=== PATIENT | female | born 1995 | race Caucasian/White ===

== ENCOUNTER 2020-07-07 08:05 | Outpatient (RCR) | payer OTHER, SELFPAY ==
[2020-07-07 08:16] VITALS: BP 123/81; PULSE 92; TEMP 36.2
--- NOTE | 2020-07-07 10:41 | PCM.WC.HP ---
(1) Laceration without foreign body of left ring finger without damage to nail, initial encounter Status: Chronic Code(s): S61.215A - Laceration without foreign body of left ring finger without damage to nail, initial encounter History of Present Illness Date of Service: 07/07/20 Chief Complaint: left 4th digit laceration History of Wound: The patient presents to the wound healing center today (07/07/2020) for an initial evaluation of a left fourth digit laceration. She was referred to the [facility] wound healing center by her occupational med provider, Stefania Potter NP. 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 She did not seek immediate medical evaluation. Per her records, the patient initially had cellulitis of the left ring finger and was treated with Augmentin, which resulted in resolution of the cellulitis. Her wound care has consisted of Epsom salt soaks and triple antibiotic ointment. She has been splinting her left ring finger while at work. She has been working light duty with restrictions that prohibit the use of her left hand. The patient is right-handed. She notes a small improvement in the size of her laceration. The laceration lies over the left fourth digit PIP joint. There is a nodule beneath the laceration, which I suspect may be keloid scarring. She denies any history of keloid formation or delayed wound healing. The left fourth digit at times becomes swollen and erythematous, typically after performing range of motion. She denies any purulent/malodorous drainage. She denies any fever or chills. She is a non-smoker. He had an x-ray of her left fourth digit on 06/22/2020 which revealed no osseous, articular, or soft tissue abnormality. Past Medical History Past Medical History: Chronic Problems Laceration without foreign body of left ring finger without damage to nail, initial encounter (Chronic) Allergies/Adverse Reactions: Allergies Sulfa (Sulfonamide Antibiotics) Allergy (Verified 08/14/15 21:45) Hives Home Medications: Ambulatory Orders Medication Instructions Recorded Naproxen [Naprosyn] 500 mg PO BID #10 tablet 08/14/15 Smoking Status: Never smoker Review of Systems Constitutional: Denies: Chills, Fever, Weight Change Eyes: Denies: Pain, Vision Change HEENT: Denies: Difficulty Hearing, Difficulty Swallowing, Sinus Congestion Cardiovascular: Denies: Chest Pain, Palpitations Respiratory: Denies: Cough, Shortness of Breath Gastrointestinal: Denies: Diarrhea, Nausea, Vomiting Genitourinary: Denies: Dysuria, Hematuria Musculoskeletal: Reports: Hand Pain, Joint Pain - Left 4th digit PIP joint Skin: Reports: Wounds - left 4th digit laceration Neurological: Denies: Numbness, Tingling Endocrine: Denies: Heat/ Cold Intolerance, Polydipsia, Polyuria Hematologic/ Lymphatic: Denies: Easy Bruising, Easy Bleeding - Physical Exam Vital Signs Temp Pulse BP 97.1 F L 92 123/81 H 07/07/20 08:16 07/07/20 08:16 07/07/20 08:16 General: Alert, Cooperative, No apparent distress HEENT: Atraumatic, Normocephalic Oral: Moist Mucosa Neck: Supple, Trachea Midline Lungs: Clear to auscultation, Normal air movement, No rhonchi, No wheeze, No rales Cardiovascular: Regular rate, Regular Rhythm Abdomen: Bowel Sounds Present, Soft, Non-Distended Extremities: No clubbing, No cyanosis, No edema, Capillary Refill Less than 3 Seconds, Peripheral Pulses Normal Skin: Ulcer/ Wound - Left fourth digit laceration over PIP joint. Wound bed is healthy with good granulation tissue. The wound does not tunnel, undermining, or probe to bone. There is no purulent/malodorous drainage. There is a nodule underlying the laceration, which is nonfluctuant. Mildly tender to palpation. Wound Measurements and Assessment WC - Nurse 1 - General Ulcer Measurement Start: 07/07/20 08:14 Freq: Status: Active Protocol: Activity Type Activity Date Activity User E-Sign Co-Sign Detail Recorded Client Recorded Date Recorded By Document 07/07/20 08:16 KR [id number] 07/07/20 08:29 KR 07/07/20 08:16 Wound Center Nurse 1 [Ulcer Assessment] #1 Left 4th finger -Current Size (cm) - Length 0.1 -Current Size (cm) - Width 0.1 -Current Size (cm) - Depth 1 -Total Square Cm 0.01 -Exudate Amt None Present -Wound Margin Distinct, Outline Attached -Granulation Amt Small (1-33%) -Granulation Quality Red -Slough/Fibrin No -Necrosis Amt None Present (0 %) -Texture (Carol[place]-wound Skin Appearance) Assessed, Scarring -Moisture ([place]-wound Skin Appearance No Abnormality, ) Assessed -Color ([place]-wound Skin Appearance) No Abnormality, Assessed -Temperature ([place]-wound Skin No Abnormality Appearance) (Pt Warm) -Tenderness on Palpation ([place]-wound No Skin Appearance) -Ulcer Cleansing Rinsed/ Irrigated with Saline -Foul Odor after Cleansing No -Anesthetic Used 5% Lidocaine Gel WC - Nurse 3 - General Ulcer D/C NN Start: 07/07/20 08:14 Freq: Status: Active Protocol: Activity Type Activity Date Activity User E-Sign Co-Sign Detail Recorded Client Recorded Date Recorded By Document 07/07/20 09:21 KR [id number] 07/07/20 09:21 KR 07/07/20 09:21 Wound Care Nurse 3 [Wound Dressing] -Ulcer Cleansing Rinsed/ Irrigated with Saline -Foul Odor after Cleansing No -Primary Dressing Applied Promogran -Primary Dressing Covered/Secured Dry Gauze, with Secured with Tape -Promogran 1 Pain Scale: 0-10 Numeric [Pain] -Is Patient Pain Free? Yes WC - Visit Discharge [Visit Discharge Information] -Discharge Condition Stable -Ambulatory Status Ambulatory -Transportation Private Auto Neurological: Neuro grossly intact Psych/Mental Status: Normal Affect, Appropriate Debridement Note Post-Debridement Measurements/Treatment WC - Nurse 3 - General Ulcer D/C NN Start: 07/07/20 08:14 Freq: Status: Active Protocol: Activity Type Activity Date Activity User E-Sign Co-Sign Detail Recorded Client Recorded Date Recorded By Document 07/07/20 09:21 KR [id number] 07/07/20 09:21 KR 07/07/20 09:21 Wound Care Nurse 3 #1 Left 4th finger -Ulcer Cleansing Rinsed/ Irrigated with Saline -Foul Odor after Cleansing No -Primary Dressing Applied Promogran -Primary Dressing Covered/Secured with Dry Gauze, Secured with Tape -Promogran 1 Pain Scale: 0-10 Numeric Is Patient Pain Free? Yes - Visit Discharge Discharge Condition Stable Ambulatory Status Ambulatory Transportation Private Auto Wound debrided: Left fourth digit laceration Laterality: Left Type of Debridement: Excisional debridement Anesthesia Used: 4% Lidocaine Solution Depth: in the subcutaneous layer Percentage of wound debrided: 100 Instrument Used: - - 1 mm curette Tissue Removed: Slough and devitalized tissue Severity: Fat Layer Exposed Amount of bleeding with debridement: Mild Bleeding Controlled with: Compression and gauze Patient tolerated procedure well Assessment/Plan Active Problems Laceration without foreign body of left ring finger without damage to nail, initial encounter (Chronic) Assessment: See above Plan: Debridement performed today in clinic. Melanie applied. At home wound-care instructions: Change Melanie dressing every other day, or more frequently as needed due to contamination. When changing dressing, wash wound thoroughly with antibacterial soap and water. Moisten Melanie with saline and apply to wound bed. Cover with gauze. Wear splint to left fourth digit when working. Avoid repetitive movement of the left fourth digit. May remove splint when showering and sleeping. When showering, massage area of laceration with warm water. Diet: Patient encouraged to increase protein intake. Labs/cultures/imaging: Cultures deferred today. No additional labs or imaging ordered at this time. Follow-up: Return to clinic in 1 week for re-evaluation. Return sooner or report to the emergency room should symptoms worsen, or new symptoms arise. [employer] updated with work restrictions. Note: [employer] speech recognition child development instructor software was used to create portions of this document. Sound-alike and misspelled words, as well as other child development instructor errors may be contained in the documentation. Office Visits / Consults: [id number] OV L4 New [id number]: [id number] Dee subq tissue 20 sq cm/<
== END 2020-07-12 23:59 ==
LOC: WC 08:05
PROVIDERS: Visit Provider Nurse Practitioner Family
DX: S61.214A Laceration without foreign body of right ring finger without damage to nail, initial encounter (principal); W26.8XXA Contact with other sharp object(s), not elsewhere classified, initial encounter; Y93.89 Activity, other specified; Y92.89 Other specified places as the place of occurrence of the external cause; Y99.0 Civilian activity done for income or pay
CPT/HCPCS: 11042; 99213; G0463

== ENCOUNTER 2020-07-14 09:00 | Outpatient (RCR) | payer OTHER, SELFPAY ==
[2015-08-14 21:43] VITALS: BMI 27.4
[2020-07-13 00:54] VITALS: BP 123/81; PULSE 92; TEMP 36.2
[2020-07-14 09:47] VITALS: BP 106/67; PULSE 77; RESP 16; TEMP 36.2; BMI 27.4
--- NOTE | 2020-07-14 14:16 | PCM.WC.PN ---
(1) Laceration without foreign body of left ring finger without damage to nail, initial encounter Status: Chronic Code(s): S61.215A - Laceration without foreign body of left ring finger without damage to nail, initial encounter Type of Wound Date of Service: 07/14/20 Chief Complaint: left 4th digit laceration History of Wound: The patient presents to the wound healing center today (07/07/2020) for an initial evaluation of a left fourth digit laceration. She was referred to the [facility] wound healing center by her occupational med provider, Stefania Potter NP. 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 She did not seek immediate medical evaluation. Per her records, the patient initially had cellulitis of the left ring finger and was treated with Augmentin, which resulted in resolution of the cellulitis. Her wound care has consisted of Epsom salt soaks and triple antibiotic ointment. She has been splinting her left ring finger while at work. She has been working light duty with restrictions that prohibit the use of her left hand. The patient is right-handed. She notes a small improvement in the size of her laceration. The laceration lies over the left fourth digit PIP joint. There is a nodule beneath the laceration, which I suspect may be keloid scarring. She denies any history of keloid formation or delayed wound healing. The left fourth digit at times becomes swollen and erythematous, typically after performing range of motion. She denies any purulent/malodorous drainage. She denies any fever or chills. She is a non-smoker. He had an x-ray of her left fourth digit on 06/22/2020 which revealed no osseous, articular, or soft tissue abnormality. Progress of Wound: Her left 4th digit laceration is healed today. She has not had any bleeding or drainage from the laceration in the past week. She continues to have a tender nodule beneath the site of her laceration (suspected keloid or fibromatosis). The patient denies any fever, chills, nausea, vomiting, or diarrhea. Denies any increasing pain, redness, swelling of affected area. - Physical Exam Vital Signs Temp Pulse Resp BP 97.1 F L 77 16 106/67 07/14/20 09:47 07/14/20 09:47 07/14/20 09:47 07/14/20 09:47 General: Alert, Cooperative, No apparent distress HEENT: Atraumatic, Normocephalic Oral: Moist Mucosa Lungs: Normal air movement Extremities: No clubbing, No cyanosis, No edema, Capillary Refill Less than 3 Seconds Skin: Ulcer/ Wound - healed today, - - Left fourth digit PIP joint nodule Wound Measurements and Assessment WC - Nurse 1 - General Ulcer Measurement Start: 07/14/20 09:47 Freq: Status: Active Protocol: Activity Type Activity Date Activity User E-Sign Co-Sign Detail Recorded Client Recorded Date Recorded By Document 07/14/20 09:47 MS [id number] 07/14/20 09:49 MS 07/14/20 09:47 Wound Center Nurse 1 [Ulcer Assessment] #1 Left 4th finger -Current Size (cm) - Length 0.1 -Current Size (cm) - Width 0.1 -Current Size (cm) - Depth 0.1 -Total Square Cm 0.01 -Exudate Amt None Present -Wound Margin Distinct, Outline Attached -Granulation Amt None Present (0 %) -Slough/Fibrin No -Necrosis Amt None Present (0 %) -Texture ([place]-wound Skin Appearance) No Abnormality -Moisture ([place]-wound Skin Appearance No Abnormality ) -Color ([place]-wound Skin Appearance) No Abnormality -Temperature ([place]-wound Skin No Abnormality Appearance) (Pt Warm) -Ulcer Cleansing Rinsed/ Irrigated with Saline -Foul Odor after Cleansing No -Anesthetic Used 4% Lidocaine Solution Musculoskeletal: No Muscle Wasting, Tenderness - Left fourth digit PIP nodule Neurological: Neuro grossly intact Psych/Mental Status: Normal Affect, Appropriate Debridement Note No debridement was completed today Assessment/Plan Assessment: See above Plan: To need to pad and protect with gauze while working. Wear splint to left fourth digit when working. Avoid repetitive movement of the left fourth digit. May remove splint when showering and sleeping. When showering, massage area of laceration with warm water and perform range of motion exercises. Nodule of left fourth digit PIP joint is suspected to be a keloid or fibromatosis. I will submit a C9 form for the patient to consult with Dr. Young (plastic surgery/hand surgery) regarding recommended treatment options. [employer] updated with work restrictions. The patient is discharged from the wound healing center today. She may follow-up on an as-needed basis. Note: [employer] speech recognition sugarcane planter software was used to create portions of this document. Sound-alike and misspelled words, as well as other sugarcane planter errors may be contained in the documentation.
== END 2020-08-11 23:59 ==
LOC: WC 09:00
PROVIDERS: Visit Provider Nurse Practitioner Family
DX: Z09 Encounter for follow-up examination after completed treatment for conditions other than malignant neoplasm (principal)
CPT/HCPCS: 99213; G0463